=== PATIENT | female | born 1975 | race Caucasian/White ===

== ENCOUNTER 2017-10-06 10:00 | Emergency (ER) | payer OTHER ==
[2017-10-06] MEDS ORDERED: LORAZEPAM 2 MG/ML VIAL IV ONE (10:18)
[2017-10-06] MEDS ORDERED: 0.9 % SODIUM CHLORIDE 1,000 ML BAG IV ONE (10:22)
--- NOTE | 2017-10-06 10:22 | Emergency Department Record ---
History of Present Illness - General Chief Complaint: Shortness of breath Stated Complaint: THINK I AM HAVING A HEART ATTACK Time Seen by Provider: 10/06/17 10:12 Source: Patient Mode of Arrival: Ambulatory Limitations: No limitations - History of Present Illness Initial Comments: The patient is here due to a 45 minute hx of dyspnea with feeling anxious. The onset was sudden at home and then she checked her pulse and noticed it fast along with very elevated BP. Due to these issues she decided to come to the ER because she felt she may be having a heart attack. She denies any chest pain or discomfort and denies any recent illnesses. The patient denies any hx of any ORR , fever, chills, AP, nausea, vomiting, or diarrhea. MD Complaint: Shortness of breath Onset/Timin -: Minutes(s) Severity scale (1-10): 1 Quality: Aching Improves With: Rest, Upright position - Related Data Home Medications Medication Instructions Recorded Confirmed Last Taken Cholecalciferol (Vitamin D3) 2,000 unit PO DAILY 10/06/17 10/06/17 1 Day Ago [Vitamin D3] ~10/05/17 Lisinopril/Hydrochlorothiazide 1 each PO DAILY 10/06/17 10/06/17 1 Day Ago [Lisinopril-Hctz 10-12.5 mg Tab] ~10/05/17 Allergies Allergy/AdvReac Type Severity Reaction Status Date / Time No Known Drug Allergies Allergy Verified 10/06/17 10:11 Travel Screening - Travel/Exposure Within Last 30 Days Have you traveled within the last 30 days?: No - Travel/Exposure Within Last Year Have you traveled outside the [place] in the last year?: No - Additonal Travel Details Have you been exposed to anyone with a communicable illness?: No - Travel Symptoms Symptom Screening: None Review of Systems Constitutional: Denies: Chills, Fever Eyes: Denies: Eye discharge ENT: Denies: Congestion Respiratory: Reports: Cough, Dyspnea. Denies: Hemoptysis Cardiovascular: Denies: Chest pain Past Medical History - SOCIAL HISTORY Smoking Status: Never smoker Alcohol Use: Occasional Alcohol Use Comment: daily Drug Use: None - RESPIRATORY Hx Respiratory Disorders: No - CARDIOVASCULAR Hx Hypertension: Yes Hx Palpitations: Yes (fast resting pulse) - NEURO Hx Neuro Disorders: No - GI Hx GI Disorders: No - Hx Genitourinary Disorders: No - ENDOCRINE Hx Diabetes: No Hx Thyroid Disease: (during ) - MUSCULOSKELETAL Hx Musculoskeletal Disorders: No - PSYCH Hx Anxiety: Yes - HEMATOLOGY/ONCOLOGY Hx Hematology/Oncology Disorders: No Family Medical History Any Significant Family History?: Yes Physical Exam - General General Appearance: Alert, Oriented x3, Cooperative, No acute distress - Head Head exam: Atraumatic - Eye Eye exam: Normal appearance, PERRL Pupils: Normal accommodation - ENT Throat exam: Normal inspection. negative: Tonsillar erythema, Tonsillar exudate - Neck Neck exam: Normal inspection, Full ROM. negative: Tenderness - Respiratory Respiratory exam: Normal lung sounds bilaterally. negative: Rales, Respiratory distress, Rhonchi, Stridor, Wheezes - Cardiovascular Cardiovascular Exam: Regular rate, Normal rhythm, Normal heart sounds. negative : Diastolic murmur, Systolic murmur - GI/Abdominal GI/Abdominal exam: Soft, Normal bowel sounds. negative: Tenderness - Extremities Extremities exam: Normal inspection, Full ROM, Normal capillary refill. negative: Tenderness - Neurological Neurological exam: Alert. negative: Motor sensory deficit - Psychiatric Psychiatric exam: negative: Agitated, Anxious, Depressed Course Vital Signs 10/06/17 10:03 Temperature 98.3 F Pulse Rate 116 H Respiratory 18 Rate Blood Pressure 146/97 Pulse Ox 100 - Reevaluation(s) Reevaluation #1: The patient is doing a lot better at this time. She denies any palpitations, dyspnea, CP or anxiety. The Ativan completely resolved her symptoms. I explained to her that I would like to do a 2nd set of cardiac enzymes in 2 more hours and she agreed to the plan. 10/06/17 11:21 Reevaluation #2: The patient is doing very well. She has had no further symptoms since the Ativan was given. I did explain to her that the workup was all WNL's. She is to see her PCP this week for recheck. 10/06/17 13:36 Medical Decision Making - Data Complexity MDM Data: Labs Ordered and/or Reviewed, X-Ray Ordered and/or Reviewed, EKG Ordered and/or Reviewed - Lab Data Result diagrams: 10/06/17 10:21 10/06/17 10:21 - EKG Data -: EKG Interpreted by Me EKG: No Acute Changes, Normal EKG - Radiology Data Radiology results: Report reviewed (CXR: Neg.) Disposition Disposition: Discharge Clinical Impression: Anxiety Disposition: Home, Self-Care Condition: (2) Stable Instructions: Anxiety (ED) Additional Instructions: Please use the Ativan if needed. Please see your PCP for recheck this week. Return to the ER for any worsening symptoms, any CP, SOB, or sweating. Forms: Patient Portal Access Time of Disposition: 13:38 Quality - Quality Measures Quality Measures: N/A - Blood Pressure Screening View Details: Yes Does Patient Have Any of the Following: No Blood Pressure Classification: Hypertensive Reading Systolic Measurement: 146 Diastolic Measurement: 97 Screening for High Blood Pressure: < Pre-Hypertensive BP, F/U Documented > [ [id number]] Pre-Hypertensive Follow-up Interventions: Referral to alternative/primary care provider.
[2017-10-06 10:28] LABS: BASO % 0.6 % (0-6); EOS % 2.7 % (0-6); GRAN % 55.4 % (47-80); HEMATOCRIT 39.2 % (35.0-47.0); HEMOGLOBIN 12.8 gm/dl (11.6-16.0); LYMPH % 32.5 % (16-45); MEAN CORPUSCULAR HEMOGLOBIN 31.7 pg (27-33); MEAN CORPUSCULAR HGB CONC 32.7 g/dl (32-36); MEAN PLATELET VOLUME 8.9 fl (7.4-10.4); MONO % 8.8 % (0-9); PLATELET COUNT 431 K/uL (130-400); RED BLOOD COUNT 4.04 M/uL (3.80-5.40); RED CELL DISTRIBUTION WIDTH 11.8 % (11.5-14.5); WHITE BLOOD COUNT W/O DIFF 6.6 K/uL (4.2-12.2)
[2017-10-06 10:42] LABS: BLOOD UREA NITROGEN 14 mg/dL (6-20); CREATININE 0.7 mg/dL (0.5-0.9); EST GLOMERULAR FILTRATION RATE > 60 mL/min
[2017-10-06 10:43] LABS: TOTAL PROTEIN 7.4 g/dL (6.6-8.7)
[2017-10-06 10:44] LABS: INR 0.96; PROTHROMBIN TIME (PATIENT) 10.4 SECONDS (9.5-12.1)
[2017-10-06 10:45] LABS: GLUCOSE,RANDOM 116 mg/dL (74-109)
[2017-10-06 10:47] LABS: ALT/SGPT 17 U/L (<33)
[2017-10-06 10:48] LABS: ALB/GLOB RATIO 1.6 (1.1-1.8); ALBUMIN 4.6 g/dL (4.0-5.0); ALKALINE PHOSPHATASE 90 U/L (35-104); AST/SGOT 19 U/L (10.0-35.0); CREATINE PHOSPHOKINASE 92 U/L (26-192)
[2017-10-06 10:50] LABS: CKMB 1.7 ng/mL (<3.77)
[2017-10-06 10:58] LABS: THYROID STIMULATING HORMONE 1.84 uIU/mL (0.270-4.20)
[2017-10-06 13:28] LABS: CKMB 1.5 ng/mL (<3.77)
[2017-10-06] MEDS ORDERED: LORAZEPAM 0.5 MG TABLET PO ONE ×2 (13:38→13:55)
--- NOTE | 2017-10-07 07:30 | RADIOLOGY REPORT ---
EXAM: CHEST, TWO VIEWS HISTORY: TACHYCARDIA AND SHORTNESS OF BREATH FOR ONE DAY. TECHNIQUE: Upright PA and lateral views of the chest were obtained. Comparison: None. FINDINGS: The cardiomediastinal silhouette is normal in size and configuration. The pulmonary vasculature is nondilated. The lungs and pleural spaces are clear. The osseous structures are intact. IMPRESSION: NO RADIOGRAPHIC EVIDENCE OF ACUTE CARDIOPULMONARY DISEASE. JOB NUMBER: [id number] MTDD
== END 2017-10-06 14:01 | disposition home or self-care (01) ==
LOC: ER 10:00
DX: R00.0 Tachycardia, unspecified (principal); R06.02 Shortness of breath; R11.0 Nausea; I10 Essential (primary) hypertension; F41.9 Anxiety disorder, unspecified
CPT/HCPCS: 99284 ×2; 96374; 82550; 85025; 85730; 85610; 82553; 80053; 84443; 84703; 84484; 85379; 71046; 93005; 93010; J2060; J7030